=== PATIENT | female | born 1995 | race Asian ===

== ENCOUNTER 2025-01-17 14:30 | Emergency (ER) | payer MEDICAID ==
[~2025-01-17] VITALS: Ht 154.9 cm; Wt 79.5 kg
[2025-01-17 14:36] VITALS: BP 120/76; PULSE 115; RESP 16; TEMP 99.7; O2SAT 98
[2025-01-17 15:13] LABS: COVID AG,FIA SOURCE NASAL SWAB
[2025-01-17 15:36] LABS: INFLUENZA TYPE A NEGATIVE FOR TYPE A (NEGATIVE); INFLUENZA TYPE B NEGATIVE FOR TYPE B (NEGATIVE); SARS-COV2 (COVID) ANTIGEN,FIA Negative (Negative)
[2025-01-17] MEDS ORDERED: SODIUM CHLORIDE 0.9% 1,000 ML IV ONE (18:00)
== END 2025-01-17 19:05 | disposition left against medical advice (07) ==
LOC: EMS 14:30
DX: R05.9 Cough, unspecified (principal); R07.89 Other chest pain; Z53.21 Procedure and treatment not carried out due to patient leaving prior to being seen by health care provider; Z20.822 Contact with and (suspected) exposure to COVID-19
CPT/HCPCS: 87804; 93005; 99281; Z7502